=== PATIENT | male | born 1985 | race Caucasian/White ===

== ENCOUNTER 2018-11-08 20:24 | Emergency (ER) | payer OTHER ==
[~2018-11-08] VITALS: Ht 177.8 cm; Wt 83.9 kg
--- NOTE | 2018-11-08 20:35 | NUR ---
Patient ambulated with stable gait. A/Ox4. Patient came for c/o left chest wall pain x2 days. Pain is non-radiating, and localized to the chest area. Respiratory even and unlabored, no cough no sob.
--- NOTE | 2018-11-08 20:50 | NUR ---
ERMD at bedside for MSE
[2018-11-08] MEDS ORDERED: CLONAZEPAM 0.5 MG TABLET PO ONE (21:15)
[2018-11-08] MEDS ORDERED: ONDANSETRON ODT 4 MG TAB.RAPDIS SL ONE (21:15)
[2018-11-08 21:16] LABS: BASOPHILS % (AUTO) 0.3 % (0.0-2.0); EOSINOPHILS # (AUTO) 0.2 K/uL (0.0-0.7); EOSINOPHILS % (AUTO) 2.1 % (0.0-7.0); HEMATOCRIT 42.4 % (36.7-47.1); HEMOGLOBIN 14.1 g/dL (12.5-16.3); LYMPHOCYTES # (AUTO) 2.3 K/uL (20.0-40.0); LYMPHOCYTES % (AUTO) 30.2 % (20.5-51.5); MEAN CORPUSCULAR HEMOGLOBIN 29.4 uug (23.8-33.4); MEAN CORPUSCULAR HGB CONC 33 g/dL (32.5-36.3); MEAN CORPUSCULAR VOLUME 88.1 fL (73.0-96.2); MONOCYTES # (AUTO) 0.4 K/uL (2.0-10.0); MONOCYTES % (AUTO) 5.6 % (0.0-11.0); NEUTROPHILS # (AUTO) 4.7 K/uL (1.8-8.9); NEUTROPHILS % (AUTO) 61.8 % (38.5-71.5); PLATELET COUNT (AUTO) 202 K/uL (152-348); RED BLOOD CELL COUNT(AUTO) 4.81 MIL/uL (4.06-5.63); WHITE BLOOD COUNT (AUTO) 7.6 K/uL (3.6-10.2)
[2018-11-08] MEDS ORDERED: ONDANSETRON ODT 4 MG TAB.RAPDIS ONE (21:17)
[2018-11-08] MEDS ORDERED: CLONAZEPAM 0.5 MG TABLET ONE (21:18)
[2018-11-08 21:25] LABS: CREATININE 0.9 mg/dL (0.6-1.3); POTASSIUM 3.9 mmol/L (3.5-5.1)
[2018-11-08 21:31] LABS: BILIRUBIN,DIRECT 0.1 mg/dL (0.0-0.2); BILIRUBIN,TOTAL 0.4 mg/dL (0.2-1.0); TOTAL PROTEIN, SERUM 7.9 g/dL (6.4-8.2)
--- NOTE | 2018-11-08 23:08 | NUR ---
Patient resting in bed, VSS, NAD
--- NOTE | 2018-11-09 00:44 | NUR ---
Patient discharged to home in stable conditon. Written and verbal after care instructions given. Patient verbalizes understanding of instructions. wALKED OUT OF WITH NO DISTRESS NOTED.
[2018-11-09 00:45] VITALS: BP 118/68
== END 2018-11-09 00:46 | disposition home or self-care (01) ==
LOC: ER 20:26
DX: R07.89 Other chest pain (principal); F41.9 Anxiety disorder, unspecified; Z90.49 Acquired absence of other specified parts of digestive tract
CPT/HCPCS: 36415; 70030-TC; 71045; 85025; 93005; A4663; Q0162